=== PATIENT | male | born 1960 | race Caucasian/White ===

== ENCOUNTER 2023-06-29 07:38 | Day surgery (SDC) | payer OTHER ==
[2023-06-29] MEDS: Lactated Ringers 1,000 ML IV SCH (08:00)
[2023-06-29] MEDS ORDERED: Propofol 200 MG/20 ML SDV ONE (09:49)
[2023-06-29] MEDS ORDERED: Midazolam 1 MG/ML 2 ML SDV ONE (09:49)
[2023-06-29] MEDS ORDERED: fentaNYL 100 MCG/2 ML SDV ONE (09:49)
== END 2023-06-29 11:19 | disposition home or self-care (01) ==
LOC: VM.SDS 07:38
PROVIDERS: ATTEND Family Medicine
DX: Z12.11 Encounter for screening for malignant neoplasm of colon (principal); D12.8 Benign neoplasm of rectum; K57.30 Diverticulosis of large intestine without perforation or abscess without bleeding; K64.4 Residual hemorrhoidal skin tags
CPT/HCPCS: 00811; J2250; J2704; J3010; J7120